=== PATIENT | male | born 1965 | race African-American/Black ===

== ENCOUNTER 2017-09-20 13:29 | Emergency (ER) | payer OTHER ==
[2017-09-20] MEDS: IBUPROFEN 600 MG TAB PO (16:45)
== END 2017-09-20 17:15 | disposition home or self-care (01) ==
LOC: M ED 13:29
DX: S96.811A Strain of other specified muscles and tendons at ankle and foot level, right foot, initial encounter (principal); X58.XXXA Exposure to other specified factors, initial encounter; Y92.830 Public park as the place of occurrence of the external cause; Y93.67 Activity, basketball; Z98.890 Other specified postprocedural states
CPT/HCPCS: 73610

== ENCOUNTER 2019-03-01 07:20 | Day surgery (SDC) | payer OTHER ==
[~2019-03-01] VITALS: Ht 172.7 cm; Wt 84.4 kg
[~2019-03-01 07:20] MED LIST: IBUP-1022 PO; NS 1,000 ML IV ONE; PROPOFOL 200 MG/20 ML VIAL As Ordered ONE
--- NOTE | 2019-03-01 08:31 | ROOR ---
Patient Name: Padma Vazquez Procedure Date: 03/01/2019 8:14 AM Date of : 1965 Age: 53 Room: [facility] Gender: Male Note Status: Finalized Procedure: Colonoscopy Indications: Screening for colorectal malignant neoplasm Providers: Demond THOMPSON MD Referring MD: ZAC FRANK MD Requesting Provider: Medicines: Monitored Anesthesia Care Complications: No immediate complications. Procedure: Pre-Anesthesia Assessment: - The heart rate, respiratory rate, oxygen saturations, blood pressure, adequacy of pulmonary ventilation, and response to care were monitored throughout the procedure. The Colonoscope was introduced through the anus and advanced to the terminal ileum, with identification of the appendiceal orifice and IC valve. The colonoscopy was performed without difficulty. The patient tolerated the procedure well. The quality of the bowel preparation was excellent. Findings: The perianal and digital rectal examinations were normal. Small Internal Hemorrhoids. The entire examined colon appeared normal on direct and retroflexion views. Impression: - Small Internal Hemorrhoids. - The entire colon is normal on direct and retroflexion views. - No specimens collected. Recommendation: - Repeat colonoscopy in 10 years for screening purposes. Demond Thompson MD Demond THOMPSON MD 03/01/2019 8:30:50 AM Electronically signed by Demond THOMPSON MD Number of Addenda: 0 Note Initiated On: 03/01/2019 8:14 AM Estimated Blood Loss: Estimated blood loss: none.
[2019-03-01 08:55] VITALS: BP 132/89
== END 2019-03-01 09:10 | disposition home or self-care (01) ==
LOC: M OPP 07:20
PROVIDERS: ATTEND Internal Medicine Gastroenterology
DX: K64.8 Other hemorrhoids (principal); Z12.11 Encounter for screening for malignant neoplasm of colon

== ENCOUNTER 2024-05-18 10:56 | Emergency (ER) | payer OTHER ==
[~2024-05-18] VITALS: Ht 170.2 cm; Wt 89.7 kg
[~2024-05-18 10:56] MED LIST changes: -NS 1,000 ML IV ONE; -PROPOFOL 200 MG/20 ML VIAL As Ordered ONE
[2024-05-18 14:15] VITALS: BP 155/86
[2024-05-18 14:26] VITALS: TEMP 98.2; O2SAT 100
== END 2024-05-18 14:40 | disposition home or self-care (01) ==
LOC: M ED 10:56
DX: I48.92 Unspecified atrial flutter (principal); I10 Essential (primary) hypertension; Z79.1 Long term (current) use of non-steroidal anti-inflammatories (NSAID)